=== PATIENT | female | born 1990 | race Caucasian/White ===

== ENCOUNTER 2024-03-31 15:45 | Emergency (ER) | payer OTHER, SELFPAY ==
[2024-03-31 16:14] VITALS: BP 143/95; PULSE 73; RESP 16; TEMP 36.3; O2SAT 97; BMI 33.3
[2024-03-31 16:25] LABS: Coronavirus 19, PCR Not Detected (NotDetected); Influenza A, PCR Not Detected (NotDetected); Influenza B, PCR Not Detected (NotDetected)
--- NOTE | 2024-03-31 17:26 | CT_ITS ---
PROCEDURE INFORMATION: Exam: CT Head Without Contrast Exam date and time: 03/31/2024 6:24 PM Age: 33 years old Clinical indication: Pain; Headache; Additional info: Headache L sided worse migraine TECHNIQUE: Imaging protocol: Computed tomography of the head without contrast. Radiation optimization: All CT scans at this facility use at least one of these dose optimization techniques: automated exposure control; mA and/or kV adjustment per patient size (includes targeted exams where dose is matched to clinical indication); or iterative reconstruction. COMPARISON: No relevant prior studies available. FINDINGS: Brain: Normal. No hemorrhage. Unremarkable white matter. No mass effect. Cerebral ventricles: No ventriculomegaly. Paranasal sinuses: Moderate right maxillary sinus disease and mild left maxillary sinus disease. Mastoid air cells: Visualized mastoid air cells are well aerated. Bones: Unremarkable. No acute fracture. Soft tissues: Unremarkable. IMPRESSION: No acute intracranial abnormality.
--- NOTE | 2024-03-31 17:29 | HMH.EDGENADL ---
Discharge Plan Disposition Patient Disposition: Home, Self-Care Condition: Good Prescriptions Prescriptions: New yqjmxevbvz-kyznoszgnjgos-nuir [Fioricet] 50-300-40 mg capsule 1 cap PO Q6H PRN (Reason: intractable migraine) Qty: 10 0RF Referrals Follow up/Referrals: Provider,Referral, MD [Primary Care Provider] - See instructions Activity Restrictions/Add. Instructions Additional Instructions/Restrictions: Today you were evaluated in the emergency department for a headache. Your CT scan was unremarkable for anything acute. Rest. Increase your fluid intake. Continue to use acetaminophen and ibuprofen [id number] for symptomatic relief as directed. Please wait 8 hours to take ibuprofen as you were given Toradol in the ED. Follow-up with your PCP within 7 days. Please return to the ED for worsening of condition. Clinical Impressions Clinical Impression: Headache Qualifiers: Headache type: unspecified Headache chronicity pattern: acute headache Intractability: not intractable Qualified Code(s): R51.9 - Headache, unspecified Instructions Patient Instructions: DI for Headache Print Language Print Language: [place] Discharge ED Provider: Ruben Myles General Adult HPI <Destini Espinal APRN - Last Filed: 03/31/24 22:18> General Chief complaint: Headache Stated complaint: CALL, neck and ear pain Time Seen by Provider: 03/31/24 15:46 Mode of Arrival: Ambulatory Source of Information: Patient Limitations: No Limitations Description of Symptoms (Recalled from ER Triage Doc. by RN): Pt presents for evaluation of headache. Pt states initially she had left sided neck pain on thursday, and yesterday developed a migraine. Tried OTC medications and has not had relief. History of Present Illness HPI narrative: 33-year-old female presents to the ED with complaint of migraine. Patient states this is the worst migraine she has ever experienced and feels different from her normal migraine. She is taken acetaminophen, ibuprofen and Excedrin without relief. Related Data Previous Rx's ?Medication ?Instructions ?Recorded mnpwcuxddx-wsjjxkgosmcgp-[id number] 1 cap PO Q6H PRN intractable 03/31/24 50 mg-300 mg-40 mg capsule migraine #10 caps (Fioricet) Allergies Allergy/AdvReac Type Severity Reaction Status Date / Time No Known Allergies Allergy Verified 03/31/24 16:17 PFSH <Destini Espinal APRN - Last Filed: 03/31/24 22:18> [facility] Disclaimer: The information contained in this section may have been updated after the patient was seen, as this information can be updated by other users. Social History (Updated 03/31/24 @ 22:18 by Destini Espinal APRN) Smoking Status: Never smoker alcohol intake: never current occupational status: other Travel in the last 8 weeks: None Have you lived/traveled outside [place] in past 30 days?: No Contact w/someone who lives/traveled outside [place] past 30 days?: No Exposure to someone with infectious disease in past 14 days?: No Do you have a fever (greater than 100.4 F or 38 C)?: No Have you tested positive for COVID-19: No Exposed to someone with COVID-19 in past 14 days?: No Do you have a sore throat?: No Do you have a cough?: No Do you have any weakness?: No Do you have any diarrhea?: No Are you experiencing any unusual bleeding?: No Do you have any muscle aches/pain?: No Do you have any abdominal pain?: No Are you experiencing loss of taste or smell?: No <Destini Espinal APRN - Last Filed: 03/31/24 22:18> ROS Obtained: Yes Systems reviewed as appropriate & no additional complaints except as documented Physical Exam <Destini Espinal APRN - Last Filed: 03/31/24 22:18> General General appearance: alert and in no apparent distress Head Head exam: atraumatic, normocephalic and other (No temporal tenderness) Eye Eye exam: Present normal appearance and PERRL ENT ENT exam: Present normal exam Neck Neck exam: Present normal inspection Chest Chest inspection: Present normal inspection and symmetric chest wall rise; Absent tenderness Respiratory Respiratory exam: Present normal lung sounds bilaterally Cardiovascular Cardiovascular exam: Present regular rate Abdominal Exam Abdominal exam: Present soft and normal bowel sounds; Absent tenderness Extremities Exam Extremities exam: Present normal inspection and full ROM Back Exam Back exam: Present normal inspection and full ROM Neurological Exam Neurological exam: Present alert, oriented X3 and other (No nystagmus) Psychiatric Psychiatric exam: Present normal affect and normal mood Skin Skin exam: Present warm and dry Medical Decision Making <Destini Espinal APRN - Last Filed: 03/31/24 22:18> Medical Records Screening: Per USPSTF and CDC recommendations, given the prevalence of disease in our region, it is our hospital?s policy to screen for HIV and viral Hepatitis for all patients aged 18 and over and those with ongoing risk factors. Jones Inquiry Pt receiving controlled substance: No Vital Signs: 03/31/24 16:14 03/31/24 21:47 Temperature 97.3 F L 98.7 F Temperature Source Oral Pulse Rate 98 H Pulse Rate [Right] 73 Respiratory Rate 16 16 Blood Pressure 128/78 Blood Pressure [Right Arm] 143/95 H Blood Pressure Mean [Right Arm] 111 Blood Pressure Position [Right Arm] Sitting 02 Sat by Pulse Oximetry 97 Oxygen Delivery Method Room Air Room Air Lab Data Lab Results 03/31/24 16:17: SARS-CoV-2 (PCR) Not detected, Influenza A Untype (PCR) Not detected, Influenza Type B (PCR) Not detected 03/31/24 17:40: WBC 12.1 H, RBC 4.70, Hgb 12.7, Hct 38.8, MCV 82.6, MCH 27.0, MCHC 32.7, RDW 13.2, Plt Count 282, MPV 10.0, Neut % (Auto) 67.6, Lymph % (Auto) 23.9, [place] % (Auto) 7.6, Eos % (Auto) 0.3, Baso % (Auto) 0.2, Neut # (Auto) 8.1 H, Lymph # (Auto) 2.9, [place] # (Auto) 0.9, Eos # (Auto) 0.0, Baso # (Auto) 0.0, Sodium 141, Potassium 3.7, Chloride 107, Carbon Dioxide 25, Anion Gap 12.7, BUN 15, Creatinine 0.90, Estimated Creat Clear 129, Estimated GFR 73, Est GFR ( Amer) 88, Glucose 87, Calcium 8.9, Total Bilirubin 0.3, AST 31, ALT 28, Alkaline Phosphatase 57, Total Protein 7.3, Albumin 4.5, Globulin 2.8, Albumin/Globulin Ratio 1.6, Serum HCG, Qual Negative 03/31/24 17:40 03/31/24 17:40 Orders (Tests/Meds): ED MEDICATIONS Discontinued Medications Generic Name Dose Route Start Last Admin Trade Name Freq PRN Reason Stop Dose Admin Dexamethasone Sodium Phosphate 8 mg 03/31/24 18:45 03/31/24 18:52 Dexamethasone 4mg/Ml 1ml Vial IV 03/31/24 18:46 8 mg ONCE ONE Administration Diphenhydramine HCl 25 mg 03/31/24 18:45 03/31/24 18:52 Diphenhydramine 50mg/Ml Vial IV 03/31/24 18:46 25 mg ONCE ONE Administration Droperidol 2.5 mg 03/31/24 18:40 03/31/24 18:47 Droperidol 5mg/2ml Vial IV 03/31/24 18:41 Not Given ONCE ONE Magnesium Sulfate 2 gm in 50 mls @ 50 mls/hr 03/31/24 17:26 03/31/24 17:42 Magnesium Sulfate 2gm/50ml Premix IV 03/31/24 18:25 50 mls/hr ONCE ONE Administration Ketorolac Tromethamine 15 mg 03/31/24 20:02 03/31/24 20:04 Ketorolac 30mg/Ml Vial IV 03/31/24 20:03 15 mg ONCE ONE Administration Prochlorperazine Edisylate 2.5 mg 03/31/24 20:21 03/31/24 20:33 Prochlorperazine 10mg/2ml Vial IV 03/31/24 20:22 2.5 mg ONCE ONE Administration Sumatriptan Succinate 6 mg 03/31/24 21:21 03/31/24 21:45 Sumatriptan 6mg/0.5ml Vial SUBCUT 03/31/24 21:22 6 mg ONCE ONE Administration ORDERS Category Date Time Status CT head/brain wo con Stat Cat Scan 03/31/24 17:26 Completed CBC w/Auto Diff [Complete Blood Count Auto Diff] Stat Lab 03/31/24 17:40 Completed CMP [Comprehensive Metabolic Panel] Stat Lab 03/31/24 17:40 Completed Rapid PCR Covid and Flu A/B Stat Lab 03/31/24 16:17 Completed Serum [HCG Qualitative, Serum] Stat Lab 03/31/24 17:40 Completed Medical Decision Narrative: In summary, patient is a 33-year-old female PMHx migraines who presents to the ED with complaints of migraine 09/25. Patient states the migraine has been present for 2 days, is different than her normal migraine, is the worst headache of her life. Patient states that normally her migraines are bilateral however today it is only on the left side, feels like a stabbing pain on her left gnosticism. Patient has taken ibuprofen, acetaminophen, Excedrin without relief. Patient states she does not follow with neurology for migraines. She does not have any dedicated migraine medication at home. Denies any recent trauma, falls. Does not take blood thinners. Denies fever, chills, body aches, visual disturbances, vision changes, posterior neck pain, chest pain, shortness of breath, abdominal pain, nausea, vomiting. Upon initial evaluation patient is alert, oriented and cooperative. Physical exam is unremarkable, left temporal area is nontender. No nystagmus. Neuroexam normal. Differential diagnosis includes migraine, ICH, infectious process, viral illness, among others Initial workup will be conducted with viral swab, CBC, CMP and CT of the head. Initial inventions include magnesium IV. Patient states her headache did not improve after the magnesium, diphenhydramine and Decadron administered IV. Upon reassessment, I had to wake the patient up to reevaluate her, patient states her headache did not improve after these medications. We administered Toradol. Upon reassessment, had to wake the patient up to reevaluate her, she states her headache has not improved. Initial workup reviewed by me, CBC remarkable for mild leukocytosis, WBC 12.1,'s H&H stable. CMP overall unremarkable for any actionable abnormalities. COVID and influenza swab negative. CT of the head final read unremarkable for any acute findings. Upon repeat evaluation, I had to wake patient up each time I entered the room. Patient states that her headache has mildly improved, continues to rate her headache a 7 out of 10. At this time, the ED attending evaluated the patient, patient was given Imitrex and a prescription for Fioricet. Discussed with patient her workup was unremarkable. I advised her she needs to follow-up with PCP. We discussed return precautions to the ED. Patient verbalized understanding. She was hemodynamically stable and ambulatory with steady gait from the ED. <Ruben Myles MD - Last Filed: 03/31/24 22:38> Vital Signs: 03/31/24 16:14 03/31/24 21:47 Temperature 97.3 F L 98.7 F Temperature Source Oral Pulse Rate 98 H Pulse Rate [Right] 73 Respiratory Rate 16 16 Blood Pressure 128/78 Blood Pressure [Right Arm] 143/95 H Blood Pressure Mean [Right Arm] 111 Blood Pressure Position [Right Arm] Sitting 02 Sat by Pulse Oximetry 97 Oxygen Delivery Method Room Air Room Air Lab Data Lab Results 03/31/24 16:17: SARS-CoV-2 (PCR) Not detected, Influenza A Untype (PCR) Not detected, Influenza Type B (PCR) Not detected 03/31/24 17:40: WBC 12.1 H, RBC 4.70, Hgb 12.7, Hct 38.8, MCV 82.6, MCH 27.0, MCHC 32.7, RDW 13.2, Plt Count 282, MPV 10.0, Neut % (Auto) 67.6, Lymph % (Auto) 23.9, [place] % (Auto) 7.6, Eos % (Auto) 0.3, Baso % (Auto) 0.2, Neut # (Auto) 8.1 H, Lymph # (Auto) 2.9, [place] # (Auto) 0.9, Eos # (Auto) 0.0, Baso # (Auto) 0.0, Sodium 141, Potassium 3.7, Chloride 107, Carbon Dioxide 25, Anion Gap 12.7, BUN 15, Creatinine 0.90, Estimated Creat Clear 129, Estimated GFR 73, Est GFR ( Amer) 88, Glucose 87, Calcium 8.9, Total Bilirubin 0.3, AST 31, ALT 28, Alkaline Phosphatase 57, Total Protein 7.3, Albumin 4.5, Globulin 2.8, Albumin/Globulin Ratio 1.6, Serum HCG, Qual Negative Orders (Tests/Meds): ED MEDICATIONS Discontinued Medications Generic Name Dose Route Start Last Admin Trade Name Freq PRN Reason Stop Dose Admin Dexamethasone Sodium Phosphate 8 mg 03/31/24 18:45 03/31/24 18:52 Dexamethasone 4mg/Ml 1ml Vial IV 03/31/24 18:46 8 mg ONCE ONE Administration Diphenhydramine HCl 25 mg 03/31/24 18:45 03/31/24 18:52 Diphenhydramine 50mg/Ml Vial IV 03/31/24 18:46 25 mg ONCE ONE Administration Droperidol 2.5 mg 03/31/24 18:40 03/31/24 18:47 Droperidol 5mg/2ml Vial IV 03/31/24 18:41 Not Given ONCE ONE Magnesium Sulfate 2 gm in 50 mls @ 50 mls/hr 03/31/24 17:26 03/31/24 17:42 Magnesium Sulfate 2gm/50ml Premix IV 03/31/24 18:25 50 mls/hr ONCE ONE Administration Ketorolac Tromethamine 15 mg 03/31/24 20:02 03/31/24 20:04 Ketorolac 30mg/Ml Vial IV 03/31/24 20:03 15 mg ONCE ONE Administration Prochlorperazine Edisylate 2.5 mg 03/31/24 20:21 03/31/24 20:33 Prochlorperazine 10mg/2ml Vial IV 03/31/24 20:22 2.5 mg ONCE ONE Administration Sumatriptan Succinate 6 mg 03/31/24 21:21 03/31/24 21:45 Sumatriptan 6mg/0.5ml Vial SUBCUT 03/31/24 21:22 6 mg ONCE ONE Administration ORDERS Category Date Time Status CT head/brain wo con Stat Cat Scan 03/31/24 17:26 Completed CBC w/Auto Diff [Complete Blood Count Auto Diff] Stat Lab 03/31/24 17:40 Completed CMP [Comprehensive Metabolic Panel] Stat Lab 03/31/24 17:40 Completed Rapid PCR Covid and Flu A/B Stat Lab 03/31/24 16:17 Completed Serum [HCG Qualitative, Serum] Stat Lab 03/31/24 17:40 Completed Medical Decision Narrative: In summary, patient is a 33-year-old female PMHx migraines who presents to the ED with complaints of migraine 09/25. Patient states the migraine has been present for 2 days, is different than her normal migraine, is the worst headache of her life. Patient states that normally her migraines are bilateral however today it is only on the left side, feels like a stabbing pain on her left gnosticism. Patient has taken ibuprofen, acetaminophen, Excedrin without relief. Patient states she does not follow with neurology for migraines. She does not have any dedicated migraine medication at home. Denies any recent trauma, falls. Does not take blood thinners. Denies fever, chills, body aches, visual disturbances, vision changes, posterior neck pain, chest pain, shortness of breath, abdominal pain, nausea, vomiting. Upon initial evaluation patient is alert, oriented and cooperative. Physical exam is unremarkable, left temporal area is nontender. No nystagmus. Neuroexam normal. Differential diagnosis includes migraine, ICH, infectious process, viral illness, among others Initial workup will be conducted with viral swab, CBC, CMP and CT of the head. Initial inventions include magnesium IV. Patient states her headache did not improve after the magnesium, diphenhydramine and Decadron administered IV. Upon reassessment, I had to wake the patient up to reevaluate her, patient states her headache did not improve after these medications. We administered Toradol. Upon reassessment, had to wake the patient up to reevaluate her, she states her headache has not improved. Initial workup reviewed by me, CBC remarkable for mild leukocytosis, WBC 12.1,'s H&H stable. CMP overall unremarkable for any actionable abnormalities. COVID and influenza swab negative. CT of the head final read unremarkable for any acute findings. Upon repeat evaluation, I had to wake patient up each time I entered the room. Patient states that her headache has mildly improved, continues to rate her headache a 7 out of 10. At this time, the ED attending evaluated the patient, patient was given Imitrex and a prescription for Fioricet. Discussed with patient her workup was unremarkable. I advised her she needs to follow-up with PCP. We discussed return precautions to the ED. Patient verbalized understanding. She was hemodynamically stable and ambulatory with steady gait from the ED. I was consulted by the SANDRA, and we discussed the complexity of the problems being addressed. I approved the treatment and management plan for this patient's care in the Emergency Department, thus performing a substantive portion of the medical decision making. I independently examined patient and interviewed her. States she is having a migraine still, but is not tachycardic, normotensive, no acute distress, speaking full sentences. Explained that we had literally exhausted all treatments here. Imitrex was discussed, she is agreeable. This was administered. Butalbital to be sent to pharmacy. Because patient at baseline without signs or symptoms of clinical decompensation, deemed appropriate for discharge. Results were relayed to patient who voiced understanding and were agreeable to outpatient management and follow up. I discussed my clinical impression with patient and answered all questions. At this time, the evidence for any other entities in the differential is insufficient to warrant any further testing or ED observation. This was explained as well. Advisory was given that persistent or worsening symptoms require further evaluation. I confirmed the understanding of this discussion. Ruben Myles MD Critical Care <Destini Espinal, [employer] - Last Filed: 03/31/24 22:18> Critical Care Time Critical Care Time: No
--- NOTE | 2024-03-31 17:37 | PC.NURSE ---
ROUNDED ON THE PT. THE PT VOICES THAT SHE DOES NOT NEED ANYTHING AT THIS TIME. CALL LIGHT IS WITHIN REACH OF THE PT.
[2024-03-31] MEDS: MAGNESIUM SULFATE IN WATER 2 GM/50 ML PIGGYBACK IV (17:42)
[2024-03-31 17:48] LABS: Basophils % 0.2 % (0.1-2.0); Eosinophils % 0.3 % (0.1-12.0); Hematocrit 38.8 % (37.0-47.0); Hemoglobin 12.7 g/dL (12.2-16.2); Lymphocytes # 2.9 K/mm3 (0.7-4.5); Lymphocytes % 23.9 % (10-50); Mean Corpuscular HGB Conc 32.7 g/dL (31.8-35.4); Mean Corpuscular Volume 82.6 fl (81-99); Monocytes # 0.9 K/mm3 (0.1-1.0); Monocytes % 7.6 % (1.7-9.3); Neutrophils # 8.1 K/mm3 (1.8-7.8); Neutrophils % 67.6 % (37.0-80.0); Platelet Count 282 K/mm3 (142-424); Red Cell Distribution Width 13.2 % (11.5-17.5); White Blood Count 12.1 K/mm3 (4.8-10.8)
[2024-03-31 18:15] LABS: HCG Qualitative, Serum Negative (Negative)
[2024-03-31 18:31] LABS: Albumin Level 4.5 g/dl (3.5-5.0); Chloride 107 mmol/L (98-107); Sodium 141 mmol/L (136-145)
[2024-03-31 18:32] LABS: Potassium 3.7 mmoL/L (3.5-5.1)
[2024-03-31 18:34] LABS: Alanine Aminotransferase 28 U/L (12-78); Albumin/Globulin Ratio 1.6 (1.1-1.8); Alkaline Phosphatase 57 U/L (38-126); Anion Gap 12.7 mEq/L (5-15); Aspartate Amino Transferase 31 U/L (14-36); Bilirubin,Total 0.3 mg/dl (0.2-1.3); Blood Urea Nitrogen 15 mg/dl (7-17); Carbon Dioxide 25 mmol/L (22.0-30.0); Creatinine Clearance Estimated 129 mL/min (50-200); Estimated Glomerular Filt Rate 73 ml/min (>60); GFR (African American) 88 ML/MIN (>60); Globulin 2.8 g/dL (1.3-3.2); Total Protein,Serum 7.3 g/dl (6.3-8.2)
[2024-03-31 18:35] LABS: Calcium 8.9 mg/dl (8.4-10.2); Glucose 87 mg/dl (74-100)
[2024-03-31] MEDS: DEXAMETHASONE 4MG/ML 1ML VIAL 8 MG IV (18:52)
[2024-03-31] MEDS: diphenhydrAMINE 50MG/ML VIAL 25 MG IV (18:52)
[2024-03-31] MEDS: KETOROLAC 30MG/ML VIAL 15 MG IV (20:04)
[2024-03-31] MEDS: PROCHLORPERAZINE 10MG/2ML VIAL 2.5 MG IV (20:33)
[2024-03-31] MEDS: SUMAtriptan 6MG/0.5ML VIAL 6 MG SUBCUT (21:45)
[2024-03-31 21:47] VITALS: BP 128/78; PULSE 98; RESP 16; TEMP 37.1; O2SAT 97
== END 2024-03-31 21:48 | disposition home or self-care (01) ==
PROVIDERS: Nurse Practitioner; Emergency Provider Emergency Medicine
DX: R51.9 Headache, unspecified (principal); M54.2 Cervicalgia
CPT/HCPCS: 70450; 80053; 84703; 85025; 87636; 96365; 96372; 96374; 96375; 99284; J0780; J1100; J1200; J1885; J3475